=== PATIENT | female | born 1955 | race Two or more races ===

== ENCOUNTER 2020-05-04 08:42 | Day surgery (SDC) | payer OTHER | END 2020-05-04 13:35 | disposition home or self-care (01) | LOC: AMB-ENDOS 08:42 | PROVIDERS: ATTEND Surgery | DX: K62.89 Other specified diseases of anus and rectum (principal); K64.8 Other hemorrhoids ==

== ENCOUNTER 2020-06-15 16:03 | Inpatient (IN) | payer OTHER ==
[~2020-06-15] VITALS: Ht 160 cm; Wt 90.7 kg
[2020-06-21] MEDS ORDERED: CYMBALTA60 MG PO (11:55)
[2020-06-21] MEDS ORDERED: AMBIEN10 MG PO (11:56)
[2020-06-21] MEDS ORDERED: LAMICTAL200 MG PO (11:56)
[2020-06-21] MEDS ORDERED: XANAX0.25 MG PO (11:56)
[2020-06-21] MEDS ORDERED: PROTONIX40 MG PO (11:57)
[2020-06-21] MEDS ORDERED: FOLIC ACID1 MG PO (11:58)
[2020-06-21] MEDS ORDERED: BUSPAR PO (11:58)
[2020-06-21] MEDS ORDERED: IRBESARTAN150 MG PO (12:20)
[2020-06-21] MEDS ORDERED: ZOCOR40 MG PO (12:20)
[2020-06-28] MEDS ORDERED: BUSPIRONE HCL30 MG (09:46)
[2020-07-01] MEDS ORDERED: INTESTINEX680 M1 PO (10:38)
[2020-07-01] MEDS ORDERED: TRAMADOL HCL50 MG PO (10:38)
== END 2020-07-01 12:09 | disposition home or self-care (01) | DRG 331 ==
LOC: SURG 06-28 07:27 → O/R 06-28 07:27 → SURH 06-28 09:45 → SURG 06-28 13:48 → SURH 06-28 14:45 → SURG 07-01 12:09
PROVIDERS: ADMIT Surgery; ATTEND Surgery
PROC: 0DJD8ZZ Inspection of Lower Intestinal Tract, Via Natural or Artificial Opening Endoscopic (ICD-10-PCS; 2020-06-28)
PROC: 0DTN4ZZ Resection of Sigmoid Colon, Percutaneous Endoscopic Approach (ICD-10-PCS; principal; 2020-06-28 14:45)
DX: K57.32 Diverticulitis of large intestine without perforation or abscess without bleeding (principal); Z20.828 Contact with and (suspected) exposure to other viral communicable diseases

== ENCOUNTER 2020-07-07 12:19 | Emergency (ER) | payer OTHER ==
[~2020-07-07] VITALS: Ht 160 cm; Wt 90.7 kg
[~2020-07-07 12:19] MED LIST: AMBIEN10 MG PO; BUSPAR PO; BUSPIRONE HCL30 MG; CYMBALTA60 MG PO; FOLIC ACID1 MG PO; INTESTINEX680 M1 PO; IRBESARTAN150 MG PO; LAMICTAL200 MG PO; PROTONIX40 MG PO; TRAMADOL HCL50 MG PO; XANAX0.25 MG PO; ZOCOR40 MG PO
== END 2020-07-07 16:02 | disposition home or self-care (01) ==
LOC: ER 12:19
DX: R10.84 Generalized abdominal pain (principal); M54.5 Low back pain